=== PATIENT | female | born 1985 | race African-American/Black ===

== ENCOUNTER 2016-08-30 22:11 | Emergency (ER) | payer MEDICAID ==
[2016-08-30] MEDS ORDERED: KETOROLAC TROMETHAMINE INJ/PF 30 MG/1 ML SDV IV ONE (23:33)
[2016-08-30] MEDS ORDERED: METOCLOPRAMIDE HCL INJ/PF 10 MG/2 ML SDV IV ONE (23:33)
[2016-08-30] MEDS ORDERED: DIPHENHYDRAMINE HCL 50 MG/ML VIAL IV ONE (23:33)
--- NOTE | 2016-08-30 23:45 | ER Document Report ---
ED General - General Chief Complaint: Headache <24 hrs old Stated Complaint: HEADACHE Notes: Patient is a 31-year-old female presents with complaint of headache and neck pain. Patient says she has pain that goes from her neck and radiates over the top of her scalp and into her forehead. She says also causes pain in 3 years. Patient says it feels like a burning type sensation across her scalp and down her neck. She says very tender to touch her neck or her scalp. She says she occasionally has some pain that'll radiate down her trapezius muscles and into her arms as well. No numbness. No weakness and her arms. No fevers. No recent trauma or injuries. No other complaints at this time. Headache has gradually worsened over last 24 hours. Headache was not sudden or maximal in onset. TRAVEL OUTSIDE OF THE [place] IN LAST 30 DAYS: No - Related Data Allergies/Adverse Reactions: amoxicillin [Amoxicillin] Allergy (Severe, Verified 08/30/16 22:25) Anaphylaxis Penicillins Allergy (Severe, Verified 08/30/16 22:25) Anaphylaxis Past Medical History - Social History Smoking Status: Current Every Day Smoker Chew tobacco use (# tins/day): No Frequency of alcohol use: Rare Drug Abuse: None Family History: Reviewed & Not Pertinent Patient has suicidal ideation: No Patient has homicidal ideation: No Neurological Medical History: Denies: Hx Seizures Renal/ Medical History: Denies: Hx Peritoneal Dialysis Traumatic Medical History: Reports: Hx Fractures - L. HIP Past Surgical History: Reports: Hx Dilation and Curettage, Hx Gynecologic Surgery - D&C - Immunizations Hx Diphtheria, Pertussis, Tetanus Vaccination: Yes Hx Pneumococcal Vaccination: 08/05/09 Review of Systems - Review of Systems Notes: My Normal Review Basic REVIEW OF SYSTEMS: CONSTITUTIONAL : Denies fever, chills, or sweats. Denies recent illness. EENT: Some ear pain. RESPIRATORY: Denies cough, cold, or chest congestion. Denies shortness of breath, difficulty breathing, or wheezing. GASTROINTESTINAL: Denies abdominal pain. Denies nausea, vomiting, or diarrhea. Denies constipation. Last BM: MUSCULOSKELETAL: Some neck pain SKIN: Denies rash or skin lesions. NEUROLOGICAL: Denies altered mental status or loss of consciousness. Has a headache. Denies weakness or paralysis or loss of use of either side. Denies problems with gait or speech. Denies sensory or motor loss. PSYCHIATRIC: Denies anxiety or stress or depression. ALL OTHER SYSTEMS REVIEWED AND NEGATIVE. Physical Exam - Vital signs Vitals: Temp Pulse Resp BP Pulse Ox 99.1 F 98 22 H 121/86 H 100 08/30/16 22:18 08/30/16 22:18 08/30/16 22:18 08/30/16 22:18 08/30/16 22:18 - Notes Notes: General Appearance: Well nourished, alert, cooperative, no acute distress, moderate obvious discomfort. Vitals: reviewed, See vital signs table. Head: I palpated over the patient's scalp she says it gives her a "burning type sensation". Eyes: PERRL, EOMI, Conjuctiva clear Mouth: No decreasd moisture Throat: No tonsillar inflammation, No airway obstruction, No lymphadenopathy Neck: Paraspinal musculature of the patient's neck is very tender to palpation. Lungs: No wheezing, No rales, No rhonci, No accessory muscle use, good air exchange bilaterally. Heart: Normal rate, Regular rythm, No murmur, no rub Extremities: strength 5/5 in all extremities, good pulses in all extremities, no swelling or tenderness in the extremities, no edema. 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 Good distal sensation. Skin: warm, dry, appropriate color, no rash Neuro: speech clear, oriented x 3, normal affect, responds appropriately to questions. Cranial nerves II through XII are intact. Distal sensation intact. Patient moves all extremities without difficulty. No focal neurologic deficits on exam. Course - Vital Signs Vital signs: Temp Pulse Resp BP Pulse Ox 98.5 F 87 14 100/77 99 08/31/16 01:41 08/31/16 01:41 08/30/16 22:30 08/31/16 01:41 08/31/16 01:41 - Transfer of Care Notes: 08/31/16 05:36 Patient symptoms are improving of the medication we gave her. Her symptoms seem very consistent with that of a tension headache that she has significant tenderness to palpation of the cervical paraspinal musculature, pain does go into the trapezius muscles, and she has a burning type sensation that goes up her scalp. I do not suspect subarachnoid hemorrhage and that the headache was gradually worsening over several days, not sudden in onset, and she has no neurologic deficits. At this time I'll discharge patient home with pain medication. I encourage her to return to ER immediately if she has fevers, vomiting, worsening headache, or she feels unwell. Patient agrees with plan and will be discharged home. Dictation of this chart was performed using voice recognition software; therefore, there may be some unintended grammatical errors. Discharge - Discharge Clinical Impression: Headache Qualifiers: Headache type: unspecified Headache chronicity pattern: unspecified pattern Intractability: not intractable Qualified Code(s): R51 - Headache Condition: Good Disposition: HOME, SELF-CARE Additional Instructions: HEADACHE: The physician does not feel that the headache you are experiencing has a serious underlying cause. Most headaches are due to emotional stress, with resultant muscle tension (tension headache). Occasionally, headaches are secondary to changes in the blood vessels of the scalp (vascular headache and migraine headache). Sometimes, a headache is the first symptom of another developing illness, such as a viral infection. You have no evidence of stroke, bleeding, meningitis, or other serious cause of your headache. The treatment of headaches varies with the severity and cause of the pain. Not all headaches need pain shots. In fact, there is evidence that using narcotics for headaches may make them worse in the long run. The physician will determine the therapy that's in your best interest. If you develop a fever, if the headache is different from any you've previously experienced, or if the headache progressively worsens, then call your physician at once or go to the emergency room. TORADOL INJECTION: You have been given an injection of ketorolac tromethamine (Toradol). This is an excellent, safe drug for pain control. It also has potent antiinflammatory action. You should have significant pain relief within about one hour. Toradol is not addicting and is non-sedating. It does not interfere with driving or work. Call or return if you develop itching, hives, shortness of breath, or rash. ORAL NARCOTIC MEDICATION: You have been given a prescription for pain control. This medication is a narcotic. It's best taken with food, as nausea can result if taken on an empty stomach. Don't operate machinery or drive within six hours of taking this medication. Do not combine this medicine with alcohol, or with any medication which can cause sedation (such as cold tablets or sleeping pills) unless you get permission from the physician. Narcotics tend to cause constipation. If possible, drink plenty of fluids and eat a diet high in fiber and fruits. Please be aware that prescription narcotics also have the potential for abuse. People become addicted to these medications because of the general sense of wellbeing that they induce. This feeling along with a significant reduction in tension, anxiety, and aggression provides a stimulating seductive quality to these drugs. Once your pain is under control, we encourage you to discard your unused narcotics. FOLLOW-UP CARE: If you have been referred to a physician for follow-up care, call the physician s office for an appointment as you were instructed or within the next two days. If you experience worsening or a significant change in your symptoms, notify the physician immediately or return to the Emergency Department at any time for re-evaluation. Please return to ER immediately if you have worsening of her headache despite treatment with medication, vomiting, fevers, or feel unwell. Please return to ER in 2-3 days for reevaluation if you continue have headache despite treatment. Prescriptions: Butalb/Acetaminophen/Caffeine [Fioricet (50-325-40 mg) Tablet] 1 tab PO Q6HP PRN #14 tab PRN Reason: headache
[2016-08-31 01:53] VITALS: BP 121/80
== END 2016-08-31 01:54 | disposition home or self-care (01) ==
LOC: ER 22:11
DX: R51 Headache (principal); M54.2 Cervicalgia; F17.210 Nicotine dependence, cigarettes, uncomplicated
CPT/HCPCS: 99283; 96374; 96375; J1200; J1885; J2765

== ENCOUNTER 2016-09-03 23:43 | Emergency (ER) | payer MEDICAID ==
[2016-09-04] MEDS ORDERED: METOCLOPRAMIDE HCL INJ/PF 10 MG/2 ML SDV IV ONE (00:24)
[2016-09-04] MEDS ORDERED: DIPHENHYDRAMINE HCL 50 MG/ML VIAL IV ONE (00:24)
[2016-09-04] MEDS ORDERED: NORMAL SALINE 1000 ML 1,000 ML IV ONE (00:24)
[2016-09-04] MEDS ORDERED: KETOROLAC TROMETHAMINE INJ/PF 30 MG/1 ML SDV IV ONE (00:24)
--- NOTE | 2016-09-04 00:27 | ER Document Report ---
ED Headache - General Chief Complaint: Headache Stated Complaint: HEAD PAIN Time seen by provider: 00:25 Notes: Patient is a 31-year-old female that comes emergency department with chief complaint of a headache, she states that she hurts over her entire head, she states that she has had a slowly worsening headache that intermittently improve with Fioricet which she was given about 3 days ago when she was evaluated in this emergency department and diagnosed with a probable tension headache. She states that she is sensitive to light and sound, nauseated denies vomiting. Patient denies history of headaches, patient denies neck or head injury, denies fever. She states she is currently on her menstrual cycle, she states her only past medical history anemia, D&C procedures, and blood transfusions. TRAVEL OUTSIDE OF THE [place] IN LAST 30 DAYS: No - Related Data Allergies/Adverse Reactions: amoxicillin [Amoxicillin] Allergy (Severe, Verified 09/03/16 23:56) Anaphylaxis Penicillins Allergy (Severe, Verified 09/03/16 23:56) Anaphylaxis Past Medical History - General Information source: Patient - Social History Smoking Status: Current Every Day Smoker Frequency of alcohol use: None Drug Abuse: None Lives with: Family Family History: Reviewed & Not Pertinent Patient has suicidal ideation: No Patient has homicidal ideation: No - Medical History Medical History: Negative Neurological Medical History: Denies: Hx Seizures Renal/ Medical History: Denies: Hx Peritoneal Dialysis Traumatic Medical History: Reports: Hx Fractures - L. HIP Past Surgical History: Reports: Hx Dilation and Curettage, Hx Gynecologic Surgery - D&C - Immunizations Hx Diphtheria, Pertussis, Tetanus Vaccination: Yes Hx Pneumococcal Vaccination: 08/05/09 Review of Systems - Review of Systems Constitutional: No symptoms reported EENT: No symptoms reported Cardiovascular: No symptoms reported Respiratory: No symptoms reported Gastrointestinal: No symptoms reported Genitourinary: No symptoms reported Female Genitourinary: No symptoms reported Musculoskeletal: See HPI Skin: No symptoms reported Hematologic/Lymphatic: No symptoms reported Neurological/Psychological: See HPI Physical Exam - Vital signs Vitals: Temp Pulse Resp BP Pulse Ox 97.5 F 97 19 120/56 L 97 09/03/16 23:58 09/03/16 23:58 09/03/16 23:58 09/03/16 23:58 09/03/16 23:58 Interpretation: Normal - General General appearance: Alert, Anxious In distress: Mild - Patient appears to be uncomfortable, not in any severe distress, wearing sunglasses - HEENT Head: Normocephalic, Atraumatic Eyes: Normal Conjunctiva: Normal Extraocular movements intact: Yes Eyelashes: Normal Pupils: PERRL - Very mild photophobia Sinus: Normal Nasal: Normal Mouth/Lips: Normal Mucous membranes: Normal Pharynx: Normal Neck: Normal. No: Meningismus - Respiratory Respiratory status: No respiratory distress Chest status: Nontender Breath sounds: Normal. No: Decreased air movement, Wheezing Chest palpation: Normal - Cardiovascular Rhythm: Regular. No: Tachycardia Heart sounds: Normal auscultation, S1 appreciated, S2 appreciated Murmur: No - Abdominal Inspection: Normal Distension: No distension Bowel sounds: Normal Tenderness: Nontender. No: Tender, Guarding Organomegaly: No organomegaly - Back Back: Tender - Patient is specifically tender in the right and left trapezius muscles extending to the paracervical muscles bilaterally, normal midline cervical, thoracic, lumbar exam, full range of motion of extremities, normal distal neurovascular exam - Extremities General upper extremity: Normal inspection, Nontender, Normal color, Normal ROM , Normal temperature General lower extremity: Normal inspection, Nontender, Normal color, Normal ROM , Normal temperature, Normal weight bearing. No: Chica's sign - Neurological Neuro grossly intact: Yes Cognition: Normal Orientation: AAOx4 [place] Coma Scale Eye Opening: Spontaneous [place] Coma Scale Verbal: Oriented [place] Coma Scale Motor: Obeys Commands [place] Coma Scale Total: 15 Speech: Normal Motor strength normal: LUE, RUE, LLE, RLE Sensory: Normal - Psychological Associated symptoms: Normal affect, Normal mood - Skin Skin Temperature: Warm Skin Moisture: Dry Skin Color: Normal Course - Re-evaluation Re-evalutation: Examination does show muscle tension in her neck/back. Suggestive of tension headache and secondary migraine. After treatment with migraine cocktail, patient sleeping soundly, after arousal patient smiling and states she no longer has any headache at all. Patient requesting something for her muscle tension in her shoulders. Patient also given additional Fioricet. Referring primary care for additional workup, discussing return precautions. Patient states understanding and agreement. - Vital Signs Vital signs: Temp Pulse Resp BP Pulse Ox 97.7 F 65 16 105/61 100 09/04/16 03:57 09/04/16 03:57 09/04/16 03:57 09/04/16 03:57 09/04/16 03:57 - Laboratory Result Diagrams: 09/04/16 00:38 Laboratory results interpreted by me: 09/04/16 00:38 WBC 10.8 H Discharge - Discharge Clinical Impression: Headache Qualifiers: Headache type: unspecified Headache chronicity pattern: acute headache Intractability: not intractable Qualified Code(s): R51 - Headache Condition: Stable Disposition: HOME, SELF-CARE Instructions: Family Physicians / Practices Additional Instructions: Your examination and response to treatment are most consistent with a tension headache triggering a migraine. Apply heat to your shoulders and neck, take the Valium as directed, take your Fioricet if needed if the headache begins. Follow-up with primary care for additional management. Return to the emergency department for any returned or new concerning symptoms. Prescriptions: Butalb/Acetaminophen/Caffeine [Fioricet (50-325-40 mg) Tablet] 1 tab PO Q4HP PRN #20 tab PRN Reason: Diazepam [Valium 5 mg Tablet] 1 - 2 tab PO TID #20 tablet
[2016-09-04 00:55] LABS: ABSOLUTE EOSINOPHILS # (AUTO) 0.3 10^3/uL (0.0-0.6); ABSOLUTE LYMPHOCYTES (AUTO) 3.7 10^3/uL (0.5-4.7); ABSOLUTE MONOCYTES (AUTO) 0.8 10^3/uL (0.1-1.4); ABSOLUTE NEUT (AUTO) 5.9 10^3/uL (1.7-8.2); BASOPHILS % (AUTO) 0.3 % (0-2); EOSINOPHILS % (AUTO) 3.2 % (0-6); HEMATOCRIT 40.3 % (36.0-47.0); HGB HCT DIFFERENCE 1.7; LYMPHOCYTES % (AUTO) 34.6 % (13-45); MEAN CORPUSCULAR HEMOGLOBIN 32.5 pg (27.0-33.4); MEAN CORPUSCULAR HGB CONC 34.7 g/dL (32.0-36.0); MEAN CORPUSCULAR VOLUME 94 fl (80-97); MONOCYTES % (AUTO) 7.2 % (3-13); RED BLOOD COUNT 4.31 10^6/uL (3.72-5.28); RED CELL DISTRIBUTION WIDTH 13.6 % (11.5-14.0); SEGMENTED NEUTROPHILS % (AUTO) 54.7 % (42-78); WHITE BLOOD COUNT 10.8 10^3/uL (4.0-10.5)
[2016-09-04] MEDS ORDERED: HYDROCODONE/ACETAMINOPHEN 5-325 MG 6 TAB/DSPK PO PRN (02:28)
[2016-09-04 04:01] VITALS: BP 105/61
== END 2016-09-04 03:55 | disposition home or self-care (01) ==
LOC: ER 23:43
DX: R51 Headache (principal); H53.149 Visual discomfort, unspecified; R11.0 Nausea; F17.200 Nicotine dependence, unspecified, uncomplicated; Z87.892 Personal history of anaphylaxis; Z88.0 Allergy status to penicillin
CPT/HCPCS: 99284; 96361; 96374; 96375; 36415; 84703; 85025; J1200; J1885; J2765; J7030

== ENCOUNTER 2016-09-16 09:11 | Emergency (ER) | payer MEDICAID ==
[2016-09-16 09:23] VITALS: BP 113/73
[2016-09-16] MEDS ORDERED: LIDOCAINE 5% (700 MG) TRANSDERMAL ADH..PATCH TP ONE (09:55)
[2016-09-16] MEDS ORDERED: KETOROLAC TROMETHAMINE 60 MG/2 ML SDV IM ONE (10:02)
--- NOTE | 2016-09-16 10:08 | ER Document Report ---
ED General - General Chief Complaint: Headache Stated Complaint: HEADACHE TRAVEL OUTSIDE OF THE [place] IN LAST 30 DAYS: No - HPI Patient complains to provider of: tension headache Notes: Patient coming in for evaluation of tension headache. Patient has been seen multiple times here in the ER for tension headache. Patient denies any change in her headache states that it continues to hurt though. Patient states that the Fioricet and time prescribed recently did help out with her symptoms however she is now out of this medication. Patient states that she did follow up with her new primary care physician is waiting for another visit so she can have a referral. Otherwise patient denies any head trauma. Denies any change in characteristic. Denies vomiting states mild nausea no diarrhea - Related Data Allergies/Adverse Reactions: amoxicillin [Amoxicillin] Allergy (Severe, Verified 09/16/16 09:23) Anaphylaxis Penicillins Allergy (Severe, Verified 09/16/16 09:23) Anaphylaxis Past Medical History - Social History Smoking Status: Current Every Day Smoker Chew tobacco use (# tins/day): No Frequency of alcohol use: None Drug Abuse: None Family History: Reviewed & Not Pertinent Patient has suicidal ideation: No Patient has homicidal ideation: No Neurological Medical History: Denies: Hx Seizures Renal/ Medical History: Denies: Hx Peritoneal Dialysis Traumatic Medical History: Reports: Hx Fractures - L. HIP Past Surgical History: Reports: Hx Dilation and Curettage, Hx Gynecologic Surgery - D&C - Immunizations Hx Diphtheria, Pertussis, Tetanus Vaccination: Yes Hx Pneumococcal Vaccination: 08/05/09 Review of Systems - Review of Systems Constitutional: No symptoms reported EENT: No symptoms reported Cardiovascular: No symptoms reported Respiratory: No symptoms reported Gastrointestinal: No symptoms reported Genitourinary: No symptoms reported Female Genitourinary: No symptoms reported Musculoskeletal: No symptoms reported Skin: No symptoms reported Hematologic/Lymphatic: No symptoms reported Neurological/Psychological: Headaches -: Yes All other systems reviewed and negative Physical Exam - Vital signs Vitals: Temp Pulse Resp BP Pulse Ox 98.1 F 93 16 113/73 97 09/16/16 09:22 09/16/16 09:22 09/16/16 09:22 09/16/16 09:22 09/16/16 09:22 Interpretation: Normal - General General appearance: Appears well, Alert - HEENT Head: Normocephalic, Atraumatic Eyes: Normal Pupils: PERRL Neck: Other - Tenderness palpation of the of the paraspinal muscles in the neck reproduces patient's pain - Respiratory Respiratory status: No respiratory distress Chest status: Nontender Breath sounds: Normal Chest palpation: Normal - Cardiovascular Rhythm: Regular Heart sounds: Normal auscultation Murmur: No - Abdominal Inspection: Normal Distension: No distension Bowel sounds: Normal Tenderness: Nontender Organomegaly: No organomegaly - Back Back: Normal, Nontender - Extremities General upper extremity: Normal inspection, Nontender, Normal color, Normal ROM , Normal temperature General lower extremity: Normal inspection, Nontender, Normal color, Normal ROM , Normal temperature, Normal weight bearing. No: Chica's sign - Neurological Neuro grossly intact: Yes Cognition: Normal Orientation: AAOx4 [place] Coma Scale Eye Opening: Spontaneous [place] Coma Scale Verbal: Oriented [place] Coma Scale Motor: Obeys Commands [place] Coma Scale Total: 15 Speech: Normal Motor strength normal: LUE, RUE, LLE, RLE Sensory: Normal - Psychological Associated symptoms: Normal affect, Normal mood - Skin Skin Temperature: Warm Skin Moisture: Dry Skin Color: Normal Course - Re-evaluation Re-evalutation: 09/16/16 15:33 Patient coming in for evaluation of tension headache. Examination is consistent with tension headache no other neurological deficit seen. Explained to patient that due to her multiple visits does not coming a chronic issue that she would need to follow-up with her primary care physician will represcribed Fioricet and Vicodin to the patient also give the patient Lidoderm patches however there are other modalities that can be explored at her primary care office or neurologist office. Explained to patient this was more likely to the last time she receives any pain medication for this complaint. - Vital Signs Vital signs: Temp Pulse Resp BP Pulse Ox 98.1 F 93 16 113/73 97 09/16/16 09:22 09/16/16 09:22 09/16/16 09:22 09/16/16 09:22 09/16/16 09:22 Discharge - Discharge Clinical Impression: Tension headache Condition: Good Disposition: HOME, SELF-CARE Instructions: Headache ([facility]), Tension Headache ([facility]), Chronic Pain Control ([facility] ) Additional Instructions: Take medications as prescribed. If you cannot afford the Lidoderm patches you may ask her pharmacist about 8 [id number] replacement. Is very important that she follow-up with your primary care physician and also possibly be referred to a neurologist. Prescriptions: Diazepam [Valium 2 mg Tablet] 2 mg PO Q6HP PRN #15 tablet PRN Reason: Butalb/Acetaminophen/Caffeine [Fioricet 50-300-40 mg Capsule] 1 cap PO Q4 PRN # 15 cap PRN Reason: Lidocaine [Lidoderm 5% (700 mg) Transdermal Patch] 1 patch TP DAILY #30 adh..patch Forms: Return to Work Referrals: AKUA FERRER MD [ACTIVE STAFF] - Follow up as needed
== END 2016-09-16 10:13 | disposition home or self-care (01) ==
LOC: ER 09:11
DX: G44.209 Tension-type headache, unspecified, not intractable (principal); F17.200 Nicotine dependence, unspecified, uncomplicated; Z88.0 Allergy status to penicillin
CPT/HCPCS: 99283; 96372; J1885; J3490

== ENCOUNTER 2017-01-07 02:02 | Emergency (ER) | payer MEDICAID ==
--- NOTE | 2017-01-07 05:10 | ER Document Report ---
HPI - HPI Pain Level: 4 Context: 31 yo female hit right "funny bone" corner of metal table saturday or saturday of last week. Shock pain to hand, burning sensation, trying not to use it since , pain shoots up to right trapezius. No hx neck injury. Positioning, ice did not help. No oral medication. 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 Associated Symptoms: None Exacerbated by: Movement Relieved by: Denies Similar symptoms previously: No Recently seen / treated by doctor: No - ROS ROS below otherwise negative: Yes Systems Reviewed and Negative: Yes All other systems reviewed and negative - CARDIOVASCULAR Cardiovascular: DENIES: Chest pain - REPRODUCTIVE Reproductive: DENIES: : Past Medical History - General Information source: Patient - Social History Smoking Status: Current Every Day Smoker Frequency of alcohol use: - wine this Drug Abuse: None Occupation: [employer] Lives with: Spouse/Significant other Family History: Reviewed & Not Pertinent Neurological Medical History: Denies: Hx Seizures Renal/ Medical History: Denies: Hx Peritoneal Dialysis Traumatic Medical History: Reports: Hx Fractures - L. HIP Past Surgical History: Reports: Hx Dilation and Curettage, Hx Gynecologic Surgery - D&C - Immunizations Hx Diphtheria, Pertussis, Tetanus Vaccination: Yes Hx Pneumococcal Vaccination: 08/05/09 Vertical Provider Document - CONSTITUTIONAL Agree With Documented VS: Yes Exam Limitations: No Limitations - INFECTION CONTROL TRAVEL OUTSIDE OF THE [place] IN LAST 30 DAYS: No - HEENT HEENT: Normocephalic - NECK Neck: Supple - RESPIRATORY Respiratory: Breath Sounds Normal, No Respiratory Distress O2 Sat by Pulse Oximetry: 100 - CARDIOVASCULAR Cardiovascular: Regular Rate, Regular Rhythm - MUSCULOSKELETAL/EXTREMETIES Musculoskeletal/Extremeties: MAEW, FROM, Tender - medial left elbow between epicondyle and olecranon, no swelling - NEURO Level of Consciousness: Awake, Alert, Agitated - due to pain Motor/Sensory: No Motor Deficit, No Sensory Deficit - DERM Integumentary: Warm, Dry, No Rash Course - Re-evaluation Re-evalutation: 01/07/17 06:23 xray neg. per rad - Vital Signs Vital signs: Temp Pulse Resp BP Pulse Ox 98.2 F 73 140/93 H 100 01/07/17 02:09 01/07/17 02:09 01/07/17 02:09 01/07/17 02:09 Procedures - Immobilization Right Arm Time completed: 06:29 Pre-Proc Neuro Vasc Exam: Normal Immobilizer type: Sling Performed by: Other - DOCUMENT EXAMINER Post-Proc Neuro Vasc Exam: Normal Alignment checked and good: Yes Discharge - Discharge Clinical Impression: Right trapezius tenderness, Right elbow contusion, Arm paresthesia, right Condition: Good Disposition: HOME, SELF-CARE Instructions: Temporary Sling ([facility]), Warm Packs ([facility]), Oral Narcotic Medication ([facility]) Additional Instructions: see your doctor for follow up see neurologist if persists rest the muscles with the sling to er if worse or new symptoms Prescriptions: Hydrocodone Bit/Acetaminophen [Hydrocodon-Acetaminophen 5-325] 1 each PO Q4HP PRN #15 tablet PRN Reason: Forms: Return to Work Referrals: AKUA FERRER MD [ACTIVE STAFF] - Follow up as needed
[2017-01-07] MEDS ORDERED: HYDROCODONE/ACETAMINOPHEN 5-325 MG TABLET PO ONE (05:35)
[2017-01-07] MEDS ORDERED: ONDANSETRON 4 MG TAB.RAPDIS PO ONE (05:35)
--- NOTE | 2017-01-07 06:25 | RADIOLOGY REPORT (SQ) ---
EXAM DESCRIPTION: ELBOW RIGHT AP/LAT COMPLETED DATE/TIME: 01/07/2017 5:49 am REASON FOR STUDY: contusion to elbow COMPARISON: None. NUMBER OF VIEWS: 2 views. TECHNIQUE: AP and lateral radiographic images acquired of the right elbow. LIMITATIONS: None. FINDINGS: MINERALIZATION: Normal. BONES: No acute fracture or dislocation. No worrisome bone lesions. JOINT: No effusion. SOFT TISSUES: No soft tissue swelling. No foreign body. OTHER: No other significant finding. IMPRESSION: NEGATIVE STUDY OF THE RIGHT ELBOW. NO RADIOGRAPHIC EVIDENCE OF ACUTE INJURY. TECHNICAL DOCUMENTATION: JOB ID: [id number] [employer]- All Rights Reserved
[2017-01-07 06:48] VITALS: BP 112/67
== END 2017-01-07 06:42 | disposition home or self-care (01) ==
LOC: ER 02:02
DX: S50.01XA Contusion of right elbow, initial encounter (principal); W22.03XA Walked into furniture, initial encounter; R20.2 Paresthesia of skin; F17.200 Nicotine dependence, unspecified, uncomplicated
CPT/HCPCS: 99283; 73070; S0119